=== PATIENT | male | born 1950 | race Hispanic/Latino ===

== ENCOUNTER → 2020-06-17 | Outpatient (CLI) | payer OTHER | END | disposition home or self-care (01) | LOC: RAH 10:30 | PROVIDERS: ATTEND Internal Medicine Gastroenterology | DX: R68.81 Early satiety (principal); R14.0 Abdominal distension (gaseous); R10.9 Unspecified abdominal pain | CPT/HCPCS: 78264; A9541 ==

== ENCOUNTER → 2020-09-25 | Outpatient (CLI) | payer OTHER | END | disposition home or self-care (01) | LOC: RAH 14:47 | PROVIDERS: ATTEND Internal Medicine | DX: I86.1 Scrotal varices (principal); N43.2 Other hydrocele | CPT/HCPCS: 76870 ==

== ENCOUNTER 2022-04-04 12:53 | Emergency (ER) | payer OTHER ==
[~2022-04-04] VITALS: Ht 157.5 cm; Wt 82.6 kg
[2022-04-04 13:03] VITALS: BP 121/70
[2022-04-04] MEDS ORDERED: ONDANSETRON 4MG INJ IV ONE (14:30)
[2022-04-04] MEDS ORDERED: ZOSYN 3.375GM +NS 50ML IV SCH (14:30)
[2022-04-04] MEDS ORDERED: MORPHINE 4 MG SYG IVP ONE (14:30)
[2022-04-04 14:40] LABS: BASOPHILS % (AUTO) 0.4 % (0.0-5.0); EOSINOPHILS % (AUTO) 4.2 % (0.0-8.0); HEMATOCRIT 38.8 % (42-54); LYMPHOCYTES % (AUTO) 41.4 % (21.0-51.0); MEAN CORPUSCULAR HEMOGLOBIN 28.5 pg (27.0-33.0); MEAN CORPUSCULAR HGB CONC 33.5 g/dL (32.0-36.0); MEAN CORPUSCULAR VOLUME 85.1 fL (79-99); MONOCYTES % (AUTO) 8.3 % (3.0-13.0); NEUTROPHILS % (AUTO) 45.5 % (40.0-77.0); PLATELET COUNT (AUTO) 164 K/uL (130-400); RED BLOOD CELL COUNT(AUTO) 4.56 MIL/uL (4.50-6.20); RED CELL DISTRIBUTION WIDTH 13.4 % (11.0-15.5); WHITE BLOOD COUNT (AUTO) 4.6 K/uL (4.8-10.8)
[2022-04-04 14:46] LABS: APPEARANCE,URINE CLEAR (CLEAR); BILIRUBIN,URINE NEGATIVE (NEGATIVE); COLOR,URINE COLORLESS (YELLOW); GLUCOSE, URINE (UA) NEGATIVE (NEGATIVE); KETONES,URINE NEGATIVE (NEGATIVE); LEUKOCYTE ESTERASE ,URINE NEGATIVE Leu/uL (NEGATIVE); NITRATE,URINE NEGATIVE (NEGATIVE); OCCULT BLOOD,URINE NEGATIVE (NEGATIVE); PH,URINE 5.5 (5.0-8.0); PROTEIN,URINE NEGATIVE (NEGATIVE); UROBILINOGEN,URINE 0.2 mg/dL (0.2-1.0)
[2022-04-04 14:55] LABS: POTASSIUM 4.1 mmol/L (3.5-5.1)
[2022-04-04 14:59] LABS: ALBUMIN 4.2 g/dL (3.5-5.0)
[2022-04-04 15:14] LABS: MUCUS,URINE RARE LPF (None Seen); WBC,URINE 0-1 /HPF (0-1)
[2022-04-04] MEDS ORDERED: IOHEXOL 350 MG/ML 100ML INFUS..BTL IV ONE (15:53)
[2022-04-04] MEDS ORDERED: GOLY4L PO (17:20)
[2022-04-04] MEDS ORDERED: DOCU-116 PO (17:20)
== END 2022-04-04 17:46 | disposition home or self-care (01) ==
LOC: EDH 12:53
DX: K59.00 Constipation, unspecified (principal); R07.9 Chest pain, unspecified; E11.9 Type 2 diabetes mellitus without complications; E78.00 Pure hypercholesterolemia, unspecified; Z79.899 Other long term (current) drug therapy
CPT/HCPCS: 99285; 74177; 96365; 96375; 80053; 83690; 85025; 81001; 36415; J2405; J2270; J2543; Q9967

== ENCOUNTER → 2023-10-18 | Outpatient (CLI) | payer OTHER ==
[~2023-10-18] MED LIST: DOCU-116 PO; GOLY4L PO
== END | disposition home or self-care (01) ==
LOC: RAH 09:59
PROVIDERS: ATTEND Internal Medicine
DX: R07.81 Pleurodynia (principal)
CPT/HCPCS: 71100

== ENCOUNTER → 2023-12-14 | Outpatient (CLI) | payer OTHER | END | disposition home or self-care (01) | LOC: RAH 15:08 | PROVIDERS: ATTEND Internal Medicine | DX: M47.812 Spondylosis without myelopathy or radiculopathy, cervical region (principal); M48.03 Spinal stenosis, cervicothoracic region; S09.90XS Unspecified injury of head, sequela; X58.XXXS Exposure to other specified factors, sequela | CPT/HCPCS: 70250; 72040 ==

== ENCOUNTER → 2024-01-14 | Outpatient (CLI) | payer OTHER ==
--- NOTE | 2024-01-14 14:14 | HMCIMG ---
CT HEAD/BRAIN W/O CONTRAST HISTORY: Headaches COMPARISON: None TECHNIQUE: Multiple sequential axial images of the head were obtained from the base of the skull through vertex. Patient was not given contrast through intravenous route. FINDINGS: The ventricles and extraventricular CSF spaces are dilated consistent with cerebral atrophy. Nonspecific white matter changes seen. There is no midline shift, mass effect or herniation. No acute intracranial bleed is seen. Visualized portion of the paranasal sinuses are grossly within normal limits. IMPRESSION: 1. No acute intracranial bleed is seen. 2. Atrophy with white matter changes. CT was performed with one or more following dose reduction techniques: automated exposure control, adjustment of the mA and kv according to patient's size, or use of a iterative reconstruction technique.
--- NOTE | 2024-01-17 14:23 | HMCIMG ---
CT CERVICAL SPINE W/O CONTRAST HISTORY: Dementia COMPARISON: None TECHNIQUE: Multiple sequential axial images of the cervical spine were obtained including post processing sagittal and coronal reconstruction images. Patient was not given contrast through intravenous route. FINDINGS: There are degenerative changes with cervical spine spondylosis. Disc space narrowing are seen at C5-6 and C6 disc/osteophyte is seen at C5-6 and C6-7 levels. There is straightening of normal lordotic cervical curvature which may be related to muscle spasm or positioning. There is no loss of vertebral height. Evaluation for disc and cord pathology is limited with CT study. No evidence of fracture or dislocation is seen. IMPRESSION: 1. No fracture is seen. DJD with cervical spine spondylosis. CT was performed with one or more following dose reduction techniques: automated exposure control, adjustment of the mA and kv according to patient's size, or use of a iterative reconstruction technique.
== END | disposition home or self-care (01) ==
LOC: RAH 12:40
PROVIDERS: ATTEND Internal Medicine
DX: G31.89 Other specified degenerative diseases of nervous system (principal); R90.82 White matter disease, unspecified; M47.812 Spondylosis without myelopathy or radiculopathy, cervical region; M48.02 Spinal stenosis, cervical region; F03.90 Unspecified dementia, unspecified severity, without behavioral disturbance, psychotic disturbance, mood disturbance, and anxiety; G43.909 Migraine, unspecified, not intractable, without status migrainosus; Z87.828 Personal history of other (healed) physical injury and trauma
CPT/HCPCS: 70450; 70490; 72125

== ENCOUNTER → 2024-06-12 | Outpatient (CLI) | payer OTHER ==
[~2024-06-12] MED LIST changes: +IOHEXOL 350 MG/ML 100ML INFUS..BTL IV ONE
--- NOTE | 2024-06-12 09:50 | HMCIMG ---
CT ABDOMEN/PELVIS W/CONTRAST HISTORY: Left lower abdominal pain COMPARISON: 04/04/2022 TECHNIQUE: Multiple sequential axial images of the abdomen and pelvis were obtained from the dome of the diaphragm through symphysis pubis. Patient was given 100 cc of Omnipaque through intravenous route. Oral contrast was given. FINDINGS: No pleural effusion is seen bilaterally. There is no evidence of parenchymal disease or pulmonary nodule of the visualized lower lungs. Degenerative changes of the thoracolumbar spine are present. The heart is not enlarged. The liver, spleen, adrenal glands and pancreas are unremarkable. There is no evidence of hydronephrosis bilaterally. No evidence of renal stone is seen. There are bilateral renal cysts mostly on the right with the largest on the right measuring 8 x 7 cm. No bowel obstruction is seen. There is diverticulosis. Fecal material is seen in the colon. There are normal size retroperitoneal and mesenteric lymph nodes. No ascites is seen. Atherosclerotic changes are present. Pelvic sidewalls are symmetric bilaterally. Bladder is poorly distended. IMPRESSION: 1. Dr. Fortune. No bowel obstruction is seen. Multiple renal cysts on the right. CT was performed with one or more following dose reduction techniques: automated exposure control, adjustment of the mA and kv according to patient's size, or use of a iterative reconstruction technique.
== END | disposition home or self-care (01) ==
LOC: RAH 07:45
PROVIDERS: ATTEND Internal Medicine Gastroenterology
DX: K57.30 Diverticulosis of large intestine without perforation or abscess without bleeding (principal); N28.1 Cyst of kidney, acquired; N32.89 Other specified disorders of bladder; R10.32 Left lower quadrant pain; M47.815 Spondylosis without myelopathy or radiculopathy, thoracolumbar region; I70.90 Unspecified atherosclerosis
CPT/HCPCS: 74177; Q9967

== ENCOUNTER → 2024-11-16 | Outpatient (CLI) | payer OTHER ==
[~2024-11-16] MED LIST changes: -IOHEXOL 350 MG/ML 100ML INFUS..BTL IV ONE
--- NOTE | 2024-11-17 06:56 | HMCIMG ---
EXAM: CR Paranasal Sinuses, 3 views. CLINICAL HISTORY: Sinusitis. COMPARISON: None provided. FINDINGS: No acute fracture or aggressive appearing osseous lesion. The paranasal sinuses are grossly clear. No air-fluid level or paranasal opacification. Unremarkable soft tissues. IMPRESSION: Clear sinuses. If indicated, a CT can be performed. /[place]
== END | disposition home or self-care (01) ==
LOC: RAH 15:37
PROVIDERS: ATTEND Physician Assistant
DX: R51.9 Headache, unspecified (principal); W19.XXXA Unspecified fall, initial encounter
CPT/HCPCS: 70260